=== PATIENT | female | born 1935 | race Caucasian/White ===

== ENCOUNTER 2019-02-26 11:27 | Inpatient (IN) | payer OTHER, MEDICARE ==
[~2019-02-26] VITALS: Ht 157.5 cm; Wt 52.8 kg
--- NOTE | 2019-02-26 11:42 | NUR ---
PLACED IN BED 4 FOR EVAL, PRIMARY RN HIRAM AT BEDSIDE AND EMT NANCY AT BEDSIDE FOR EKG.
--- NOTE | 2019-02-26 11:45 | NUR ---
PER PT SHE WAS IN THE RESTROOM THIS MORNING WHEN SHE FELT WEAK AND ASSISTED HERSELF TO THE GROUND. PT YELLED FOR HELP AND PT FAMILY HELPED HER TO CHAIR. PT DENIES HITTING HEAD OR ANY LOC. PT WAS THEN TAKEN TO HER DOCTOR AND HAD A SYNCOPAL EPISODE WHEN SITTING. PT STS THAT DID HAVE POS. LOC AND DOES NOT REMEBER WHAT HAPPENED. PER DAUGHTER STS THAT SHE WAS NEXT HER AND PT DID NOT FALL AND HIT HEAD. PT STS THAT SHE FEEL 'CONFUSED'. PER PT SHE STARTED VOMITING THIS MORNING AND UNABLE TO HOLD FLUIDS DOWN. PT IS ALERT BUT SLOW TO ANSWER AND STS SHE IS A LITTLE CONFUSED. PT ABLE TO ANSWER ALL QUESTIONS APPROPRIATLY. VSS, RESP E/U. NO NEURILOGICAL DEFICITS NOTED. BHUPINDER NOTED. WILL CONTINUE TO MONITOR.
--- NOTE | 2019-02-26 11:49 | NUR ---
PT PLACED ON FULL CM.
[2019-02-26 12:37] LABS: BASOPHIL % 0.1 % (0-2); PLATELET COUNT 214 x10^3mcL (130-400); RED CELL DISTRIBUTION WIDTH 14.5 % (11.5-14.5)
[2019-02-26 13:07] LABS: CALCIUM 9.3 mg/dL (8.5-10.1); CARBON DIOXIDE 23.5 mmol/L (21-32); CHLORIDE SERUM 109 mmol/L (98-107); CREATININE SERUM 1.5 mg/dL (0.6-1.0); GLUCOSE SERUM 180 mg/dL (74-106); POTASSIUM SERUM 4.4 mmol/L (3.5-5.1); SODIUM SERUM 145 mmol/L (136-145)
[2019-02-26 13:20] LABS: ALBUMIN 3.7 g/dL (3.4-5.0); ALKALINE PHOSPHATASE 57 U/L (46-116); ALT/SGPT 41 U/L (14-59); AST/SGOT 40 U/L (15-37); BILIRUBIN TOTAL 0.7 mg/dL (0.20-1.00); TOTAL PROTEIN, SERUM 7.6 g/dL (6.4-8.2)
[2019-02-26 14:18] LABS: microscopic required? YES; urine erythrocyte TRACE (NEGATIVE)
[2019-02-26] MEDS ORDERED: GOOD SENSE OMEP20 MG PO (14:22)
[2019-02-26] MEDS ORDERED: LEVOTHYROXIN0.025 M2 PO (14:22)
[2019-02-26] MEDS ORDERED: ZOL100 PO (14:23)
--- NOTE | 2019-02-26 14:54 | NUR ---
FOOD TRAY GIVEN
--- NOTE | 2019-02-26 16:09 | NUR ---
PT ADMITTED TO TELE, REPORT GIVEN TO LINDSAY
--- NOTE | 2019-02-26 16:09 | NUR ---
PER MD JAIME OK TO TRANSFER TO TELE
[2019-02-26 16:35] VITALS: BP 112/58
--- NOTE | 2019-02-26 16:40 | NUR ---
RECEIVED PT FROM ED VIA BRITTANY. ORIENTED PT TO ROOM AND SURROUNDINGS. IV NOTED TO LH PATENT AND INTACT. 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 INSTRUCTED PT ON THE USE OF CALL LIGHT FOR ASSISTANCE. ENDORSED PT TO PRIMARY NURSE LINDSAY
--- NOTE | 2019-02-26 18:52 | NUR ---
PATIENT SEATED IN BED. DAUGHTER AT BEDSIDE. NO COMPLAINTS OF PAIN AT THIS TIME. WILL ENDORSE TO ONCOMING NURSE. CALL LIGHT IN REACH.
--- NOTE | 2019-02-26 19:59 | NUR ---
PT RECIEVED AWAKE ALERT AAND ORIENTED TO NAME AND AGE,FAMILY AT THE BEDSIDE,REG RESP NO SOB V/S STABLE,MOVE ALL UPPER EXTRE,JAIMEE LLE WEAKNESS EXTRE CALL PUSH AND DISTRICT GAUGER ARE EQUAL TO THE UPPER EXTRE AND TO HAVE INFORM AND SET TO HAVE TELE NEURO CONSULT,KEPT CLEAN AND DRY TO TOUCH,IV INFUSING WELL WITH THE SITE PATENT AND INTACT,FAX ALL INFORMATION REQUESTING AND WAITING TO HAVE IT DONE, PT RESTING AT THIS TIME AND WILL CONTINUE TO MONITOR.
--- NOTE | 2019-02-26 20:12 | NUR ---
ROMI RAMIREZ IN SECTION NOW AND DR VILLAGRAN SAYED IN THE OOM AND ASSISTING THE ASHLEY DOCTOR AT THIS TIME,WILL CONTINUE TO MONITOR.
--- NOTE | 2019-02-26 20:31 | NUR ---
TELE NEURO COMPLETED ORDER,WILL CONTINUE TO MONITOR.
[2019-02-26 21:12] VITALS: BP 126/51
--- NOTE | 2019-02-26 21:48 | NUR ---
PT REQESTING FOR SEEPING MEDS,PT WAS GIVEN 5 MG PO AMBIEN ORDER AND WILL CONTINUE TO MONITOR.
--- NOTE | 2019-02-26 23:42 | NUR ---
PT RESTING AT THIS TIME,WILL CONTINUE TO MONITOR.
--- NOTE | 2019-02-27 06:23 | NUR ---
PT HAD A RESTING NIGHT NO CHANGE AT THIS TIME,WILL CONTINUE TO MONITOR.
[2019-02-27 06:28] VITALS: BP 113/53
[2019-02-27 07:26] LABS: CALCIUM 8.3 mg/dL (8.5-10.1); CARBON DIOXIDE 24.9 mmol/L (21-32); CHLORIDE SERUM 111 mmol/L (98-107); CREATININE SERUM 1.3 mg/dL (0.6-1.0); GLUCOSE SERUM 101 mg/dL (74-106); POTASSIUM SERUM 3.5 mmol/L (3.5-5.1); SODIUM SERUM 146 mmol/L (136-145)
--- NOTE | 2019-02-27 07:28 | NUR ---
RECEIVED PATIENT FROM VAMSI CASTANO, STATING PATIENT HAD RESTLESS NIGHT PATIENT SLEEPING AT THIS TIME, BREATHING STEADY AND UNLABORED NO DISCOMFORT NOTED. CALL LIGHT WITHIN REACH OF PATIENT, ROOM CLOSE TO NURSES STATION. WILL CONTINUE TO MONITOR
[2019-02-27 07:37] VITALS: BP 108/48
[2019-02-27 07:57] LABS: BASOPHIL % 0.3 % (0-2); PLATELET COUNT 188 x10^3mcL (130-400)
[2019-02-27 07:58] LABS: RED CELL DISTRIBUTION WIDTH 14.7 % (11.5-14.5)
--- NOTE | 2019-02-27 09:55 | NUR ---
DAUGHTER AT BEDSIDE, TRAM TILE PRESSER WITH PATIENT AND FMIL, UPDEATED ON PLAN OF CARE. ANSWERED QUESTIONS THAT AROSE.
--- NOTE | 2019-02-27 10:05 | NUR ---
ECHOCARDIOGRAM PENDING-WITH DOCTOR
--- NOTE | 2019-02-27 10:30 | NUR ---
ECHO IN PROGRESS
[2019-02-27 13:24] VITALS: BP 125/55
--- NOTE | 2019-02-27 14:00 | NUR ---
PATIENT RESTING AT THIS TIME. ASSISTED TO RESTROOM. NO COMPLAINTS OF PAIN CALL LIGHT WITHIN REACH, WILL CONTINUE TO MONITOR
[2019-02-27 16:14] VITALS: BP 143/57
--- NOTE | 2019-02-27 19:27 | NUR ---
GAVE REPORT TO RUBIN CASTANO, PATIENT COMFORTABLE WITH NO COMPLAINTS
[2019-02-27 19:55] VITALS: BP 145/66
--- NOTE | 2019-02-27 19:55 | NUR ---
RECEIVED RPT FROM FLORENCE CASTANO. PT IS A/O X4. DENIES REEVES OR DIZZINESS AT THIS TIME. BREATHING IS EVEN AND UNLABORED. NO SIGNS OF RESP DISTRESS. DENIES CP. ON TELE #2 W NSR 1AVB BBB. BP 145/66. NO ACUTE DISTRESS NOTED. DENIES PAIN AT THIS TIME. ENCOURAGED PT TO USE CALL LIGHT FOR ASSISTANCE OR WHEN USING THE RESTROOM. WILL CONTINUE TO MONITOR.
--- NOTE | 2019-02-27 21:56 | NUR ---
PT IS LYING IN BED, ASLEEP. BREATHING IS EVEN AND UNLABORED. NO ACUTE DISTRESS NOTED. WILL CONTINUE TO MONITOR.
--- NOTE | 2019-02-28 01:00 | NUR ---
PT IS ASLEEP. BREATHING IS EVEN AND UNLABORED. NO SIGNS OF RESP DISTRESS. WILL CONTINUE TO MONITOR.
--- NOTE | 2019-02-28 03:26 | NUR ---
IV WAS LEAKING. NEW ONE STARTED ON THE LAC 22G. INFUSING WELL. WILL CONTINUE TO MONITOR.
--- NOTE | 2019-02-28 05:29 | NUR ---
PT SLEPT THROUGH INTERVALS THROUGHOUT THE NIGHT. BREATHING IS EVEN AND UNLABORED. NO SIGNS OF RESP. DISTRESS. COMFORT AND SAFETY MEASURES MAINTAINED. BED ALARM ON. ALL NEEDS ASSESSED AND ATTENDED TO. CALL LIGHT WITHIN REACH. WILL CONTINUE TO MONITOR.
[2019-02-28 06:09] VITALS: BP 128/56
[2019-02-28 06:50] LABS: CARBON DIOXIDE 26.3 mmol/L (21-32); CHLORIDE SERUM 112 mmol/L (98-107); CREATININE SERUM 1.2 mg/dL (0.6-1.0); GLUCOSE SERUM 109 mg/dL (74-106); POTASSIUM SERUM 3.2 mmol/L (3.5-5.1); SODIUM SERUM 146 mmol/L (136-145)
[2019-02-28 07:06] LABS: BASOPHIL % 0.1 % (0-2); PLATELET COUNT 190 x10^3mcL (130-400); RED CELL DISTRIBUTION WIDTH 14.3 % (11.5-14.5)
--- NOTE | 2019-02-28 07:35 | NUR ---
PT COMPLIED WITH NURSING CARE THROUGHTOUT SHIFT W/ NO ACUTE EVENTS OVERNIGHT, ENDORSED CARED TO FLORENCE CASTANO.
[2019-02-28 07:41] VITALS: BP 144/66
--- NOTE | 2019-02-28 10:20 | NUR ---
ADMINSTERED MEDICATION PER MAR, UPDATED PATIENT AND DAUGHTER OF PLAN OF CARE. SILL PENDING URINE CULTURE RESULT AND CONSULTATION BY HABILITATION WORKER. CALL LIGHT WITHIN REACH, WILL CONTINUE TO MONITOR
[2019-02-28 12:44] VITALS: BP 151/72
[2019-02-28 14:02] VITALS: BP 137/69
--- NOTE | 2019-02-28 14:03 | NUR ---
[employer] TEACHER REPORTED PATIENT BLOOD PRESSURE OF BEING ELEVATED RECHECKED AND BLOOD PRESSURE WITHIN RANGE, PATIENT STATED SHE WAS FEELING A LITTLE ANXIOUS. BUT IT HAS PASSED. WILL CONTINUE TO MONITOR
--- NOTE | 2019-02-28 15:40 | NUR ---
PATIENT FAMILY REQUESTING ASSITANCE. PATIENT REPOSITIONED IN BED AND INSTRUCTED ON PROPER BREATHING. PATIENT HEART RATE NOW 83, STILL AFIB ON THE MONITOR. O2 SATURATION 95%. CALL LIGHT WITHIN REACH
[2019-02-28 16:48] VITALS: BP 150/69
--- NOTE | 2019-02-28 16:55 | NUR ---
PATIENT COMFORTABLE AT THIS TIME WITH NO COMPLAINTS. REINFORCED TEACHING TO KEEP LEFT ARM STRAIGHT TO AVOID HIGH PRESSURE IN IV. PATIENT RECEPTIVE OF TEACHING. CALL LIGHT WITHIN REACH WILL CONTINUE TO MONITOR
--- NOTE | 2019-02-28 17:40 | NUR ---
DR ANN SAW PATIENT AND SAW NOT CLINICAL SIGNIFICANCE TO KEEP PATIENT FROM HIS POINT OF VEIW. NEW ORDERS TO TAKE PATIENT OFF OF TELE, WILL INFORM TRAM OF DR ANN RECOMENDATIONS. URINE CULTURE ALSO CAME BACK WITH NO GROWTH AFTER 24 HOURS.
--- NOTE | 2019-02-28 18:22 | NUR ---
ADMINSITERED MEDICATION PER AUG. PATIENT NOW MS PER DR ANN. ORDERS IN. REMOVED TELE 2 AND TAKEN BACK TO DEAN FOR STUDENT [employer]FFA[employer] JASON.
[2019-02-28 19:15] VITALS: BP 120/66
--- NOTE | 2019-02-28 19:15 | NUR ---
RECEIVED PT AWAKE ALERT X3 WITH FORGETFULNESS WITH FAMILY AT BEDSIDE.DENIES HEADACHE OR DIZZINESS AT THIS TIME.DENIES CHESTPAIN.BP 120/66 MMHG,HR 68.CONSTANTLY REMINDED TO CALL FOR ASSISTANCE AT ALL TIMES.BEDALARM ON AT ALL TIMES.WILL CONTINUE TO MONITOR.
--- NOTE | 2019-03-01 04:57 | NUR ---
PT SLEPT WELL.DENIES HEADACHE OR DIZZINESS ALL NIGHT.ASSISTED TO BR NEEDED.AMBULATED WITH FWW.BEDALARM ON AT ALL TIMES.WILL CONTINUE TO MONITOR.
[2019-03-01 05:25] VITALS: BP 153/70
[2019-03-01 06:19] LABS: BASOPHIL % 0.5 % (0-2); PLATELET COUNT 204 x10^3mcL (130-400)
[2019-03-01 06:44] LABS: CALCIUM 7.9 mg/dL (8.5-10.1); CARBON DIOXIDE 26.3 mmol/L (21-32); CHLORIDE SERUM 110 mmol/L (98-107); CREATININE SERUM 1.1 mg/dL (0.6-1.0); GLUCOSE SERUM 101 mg/dL (74-106); POTASSIUM SERUM 3.7 mmol/L (3.5-5.1); SODIUM SERUM 145 mmol/L (136-145)
--- NOTE | 2019-03-01 07:40 | NUR ---
RECEIVED PT IN BED. ASSESSED AND DOCUMENTED. DENIES PAIN THIS TIME. SAFTEY PRECAUTIONS ARE IN PLACE. WILL MONITOR.
--- NOTE | 2019-03-01 09:00 | NUR ---
P.T AMBULATED THE PT IN THE HALLWAY WITH WALKER. AMBULATED WELL WITH STEADY GAIT.
[2019-03-01 09:03] VITALS: BP 152/72
[2019-03-01] MEDS ORDERED: NORVASC2.5 MG PO (09:58)
[2019-03-01] MEDS ORDERED: BACTRIM DS1 TAB PO (09:58)
[2019-03-01 12:45] VITALS: BP 147/81; BP 152/72
--- NOTE | 2019-03-01 13:20 | NUR ---
DISCHARGE INSTRUCTIONS AND PRESCRIPTIONS GIVEN. PB SIGNED AND SENT WITH PT. IV REMOVED AND DRESSING APPLIED. DENIES ANY PAIN. PT'S DAUGHTER AT BEDSIDE. OUTPATIENT ADMITTING CLERK WHEELED PT DOWN TO LOBBY ACCOMPANIED WITH PT'S DAUGHTER. PT DC HOME.
--- NOTE | 2019-03-01 15:45 | NUR ---
PHYSICAL THERAPY DAILY NOTES CO-SIGN All documentation done by the [employer] for 03/01/19 has been reviewed. I agree with the documentation. Reviewed/Co-Signed by: Ksenia Nelson PT Documentation Done by:NIVIA AVILA PTA
== END 2019-03-01 13:46 | disposition home or self-care (01) | DRG 689 ==
LOC: ED 11:27 → DU 13:54 → MU 13:54 → DU 16:40 → MU 03-01 04:50
PROVIDERS: Emergency Medicine; ADMIT Internal Medicine
DX: N39.0 Urinary tract infection, site not specified (principal); N17.0 Acute kidney failure with tubular necrosis; I10 Essential (primary) hypertension; E86.0 Dehydration; E03.9 Hypothyroidism, unspecified; I35.1 Nonrheumatic aortic (valve) insufficiency; F32.9 Major depressive disorder, single episode, unspecified; Z66 Do not resuscitate
CPT/HCPCS: 97116-GP; 97530-GP; G0378; J0696; J2405; J7042; J7070; Q0092